=== PATIENT | male | born 1960 | race Caucasian/White ===

== ENCOUNTER 2018-12-13 13:17 | Outpatient (CLI) | payer OTHER ==
[~2018-12-13 13:17] MED LIST: DICLOFENAC POTA50 MG PO; PERCOCET 5/3251 TAB PO; SYNTHROID75 MCG
== END 2018-12-13 13:32 | disposition home or self-care (01) ==
LOC: RAD 13:17
DX: M16.0 Bilateral primary osteoarthritis of hip (principal)

== ENCOUNTER → 2019-01-04 | Outpatient (CLI) | payer OTHER | END | disposition home or self-care (01) | LOC: RAD 13:02 | DX: M19.90 Unspecified osteoarthritis, unspecified site (principal); S43.431A Superior glenoid labrum lesion of right shoulder, initial encounter ==

== ENCOUNTER 2019-11-09 15:08 | Emergency (ER) | payer OTHER ==
[~2019-11-09] VITALS: Ht 182.9 cm; Wt 97.5 kg
== END 2019-11-09 16:11 | disposition home or self-care (01) ==
LOC: ER 15:08
DX: S61.227A Laceration with foreign body of left little finger without damage to nail, initial encounter (principal); W26.0XXA Contact with knife, initial encounter; Y93.G3 Activity, cooking and baking; Y92.010 Kitchen of single-family (private) house as the place of occurrence of the external cause; Y99.8 Other external cause status

== ENCOUNTER 2021-04-05 08:00 | Outpatient (CLI) | payer OTHER | END 2021-04-05 08:15 | disposition home or self-care (01) | LOC: PPH VACUNA 08:00 | PROVIDERS: ATTEND Emergency Medicine Pediatric Emergency Medicine | DX: Z23 Encounter for immunization (principal) ==

== ENCOUNTER 2022-02-12 15:02 | Outpatient (CLI) | payer OTHER | END 2022-02-12 15:09 | disposition home or self-care (01) | LOC: RAD 15:02 | PROVIDERS: ATTEND Psychiatry & Neurology Psychiatry | DX: M16.0 Bilateral primary osteoarthritis of hip (principal) ==

== ENCOUNTER 2022-10-01 07:08 | Emergency (ER) | payer OTHER ==
[~2022-10-01] VITALS: Ht 182.9 cm; Wt 93.0 kg
== END 2022-10-01 18:47 | disposition home or self-care (01) ==
LOC: ER 07:08
DX: D35.2 Benign neoplasm of pituitary gland (principal); E03.9 Hypothyroidism, unspecified
CPT/HCPCS: 70552

== ENCOUNTER 2022-12-05 13:48 | Outpatient (CLI) | payer OTHER | END 2022-12-05 14:23 | disposition home or self-care (01) | LOC: TOM 13:48 | DX: D35.2 Benign neoplasm of pituitary gland (principal) ==